=== PATIENT | male | born 1955 | race Caucasian/White ===

== ENCOUNTER 2016-10-31 10:44 | Outpatient (CLI) ==
[2014-09-01 01:20] VITALS: BMI 37.3
--- NOTE | 2016-10-31 11:36 | US ---
EXAM: Carotid ultrasound HISTORY: Dizziness COMPARISON: 06/26/2013 TECHNIQUE: Carotid ultrasound was performed using khan scale, color, and Doppler imaging was perfor med. FINDINGS: Right carotid: There is atherosclerotic plaque in the common carotid and bulb/internal carotid nancy ry. Peak systolic velocity measurement in the right internal carotid artery is 0.7 meters per secon d. End-diastolic velocity measurement in the right internal carotid artery is 0.2 meters per second . Right internal to common carotid artery peak systolic velocity ratio is 1.2. Flow in the right v ertebral artery is antegrade. Left carotid: There is atherosclerotic plaque in the common carotid and bulb/internal carotid arter y. Peak systolic velocity measurement in the left internal carotid artery is 0.9 meters per second. End-diastolic velocity measurement in the left internal carotid artery is 0.3 meters per second. Left internal to common carotid artery peak systolic velocity ratio measures 1.0. Flow in the left vertebral artery is antegrade. IMPRESSION: 1. Right internal carotid: Mild (less than 50%) stenosis 2. Left internal carotid: Mild (less than 50%) stenosis
== END 2016-10-31 10:45 | disposition home or self-care (01) ==
LOC: RAD 10:44
PROVIDERS: ATTEND Internal Medicine
DX: R42 Dizziness and giddiness (principal)

== ENCOUNTER 2017-01-26 07:43 | Outpatient (CLI) | payer OTHER ==
[2014-09-01 01:20] VITALS: BMI 37.3
--- NOTE | 2017-01-26 09:38 | MRI ---
EXAM: MRI lumbar spine without IV contrast. DATE: 26 January 2017. HISTORY: Bilateral lower extremity numbness and tingling (left > right). TECHNIQUE: Sagittal and axial T1W and T2W sequences of the lumbar spine along with sagittal IR and coronal T2W sequences were obtained using 1.2 Ade magnet. No IV contrast. COMPARISON: Frontal chest [address] abdomen/pelvis 01 September 2014. FINDINGS: There are four classic [id number] lumbar vertebra (L1 through L4). At the thoracolu mbar junction, there is a transitional vertebra with hypoplastic rib versus unusual right transverse process. Previous CT scan reveals 11 classic thoracic vertebra followed by this transitional verte bra. For the purposes of this dictation, this transitional vertebra is referred to as T12. At the lumbosacral junction, there is pseudoarticulation of the left L5 transverse process with the left S1 sacral ala, consistent with partial sacralization of L5. There is no lumbar scoliosis. No acute lumbar fracture, subluxation, osseous malignancy, or pars in terarticularis defect is identified. T2W/T1W bright, 5.0 mm focus in the L1 body, 24 mm focus in the L2 body, 20 mm focus in the L3 body, 7.4 mm focus in the L4 body, and 11.4 mm focus in the L5 body are likely benign hemangiomas. Small to moderate osteophytes are observed in the lower thoracic and lumbar spine. Endplate indentations are observed at each level from T11 through S1. There is mild posterior vertebral wedge appearance of the L3, L4, and L5 vertebra. Minor disc space narrowing is s een at L5-S1. Remaining intervertebral discs are normal in height. No sacral fracture or stress re action is detected. Minor anterior osteophytes each SI joint consistent with arthritis. Conus medu llaris terminates at T12. Visible spinal cord is normal. No retroperitoneal lymphadenopathy, paraspinal mass, or aortic aneurysm is detected. Paraspinal mus culature is symmetric bilaterally. Visible portions of the liver, spleen, gallbladder, adrenal glan ds kidneys are normal. Small number sigmoid colon diverticuli are visible. Segmental analysis: T12-L1: Minimal posterior disc bulge does not cause central stenosis or foraminal stenosis. L1-2: Minor posterior disc bulge and abundant dorsal epidural fat cause mild central canal stenosis . Each foramen is patent. L2-3: Small concentric disc bulge, mild facet arthropathy, and abundant dorsal epidural fat cause m oderate/marked central canal stenosis and mild bilateral foraminal stenoses. L3-4: Small concentric disc bulge, mild bilateral facet arthropathy, and marked dorsal epidural fat cause marked central canal stenosis and mild to moderate narrowing at the opening to each foramen. L4-5: Small concentric disc bulge, mild/moderate facet arthropathy, and abundant dorsal epidural fa t cause severe narrowing of the thecal sac and mild to moderate narrowing at the opening to each for amen. L5-S1: Minor posterior disc bulge, minor right facet arthropathy, mild left facet arthropathy, and abundant epidural fat cause slight bilateral foraminal encroachment. Thecal sac is severely narrowe d due to the epidural fat. IMPRESSIONS: 1. Lumbar spine mild spondylosis, mild facet arthropathy, multilevel minor DDD, and marked lumbosac ral spinal lipomatosis. 2. Multilevel central canal stenosis (L1-2: Mild. L2-3: Moderate/marked. L3-4: Marked. L4-5: Sev ere. L5-S1: Severe) 3. Multilevel lumbar foraminal stenoses. No definitive exiting nerve root compression. 4. Multilevel endplate indentations - consider Scheuermann disease. 5. Probable benign hemangiomas in the L1, L2, L3, L4, L5 vertebra. 6. Mild sigmoid colon diverticulosis. Note: Four classic lumbar vertebra. Partial sacralization of L5.
== END 2017-01-26 07:44 | disposition home or self-care (01) ==
LOC: RAD 07:43
PROVIDERS: ATTEND Internal Medicine Rheumatology
DX: R20.0 Anesthesia of skin (principal)

== ENCOUNTER 2017-02-27 16:55 | Outpatient (CLI) | payer OTHER ==
[2014-09-01 01:20] VITALS: BMI 37.3
== END 2017-02-27 16:56 | disposition home or self-care (01) ==
LOC: CAR 16:55
PROVIDERS: ATTEND Internal Medicine Pulmonary Disease
DX: G47.33 Obstructive sleep apnea (adult) (pediatric) (principal)
CPT/HCPCS: 95810

== ENCOUNTER 2017-03-26 16:15 | Outpatient (CLI) | payer OTHER ==
[2014-09-01 01:20] VITALS: BMI 37.3
== END 2017-03-26 16:16 | disposition home or self-care (01) ==
LOC: CAR 16:15
PROVIDERS: ATTEND Internal Medicine Pulmonary Disease
DX: G47.33 Obstructive sleep apnea (adult) (pediatric) (principal)
CPT/HCPCS: 95811

== ENCOUNTER 2017-04-05 09:06 | Outpatient (CLI) ==
[2014-09-01 01:20] VITALS: BMI 37.3
--- NOTE | 2017-04-05 12:39 | MRI ---
EXAM: MRI left knee without contrast. HISTORY: Left knee pain. Arthroscopy 2 years ago. Details not otherwise specified. No recent inju ry.. TECHNIQUE: Using a local extremity coil on a high field strength magnet multiplanar multisequence m agnet resonance imaging was performed of the left knee without intravenous or intra-articular gadoli nium contrast. FINDINGS: I do not have prior radiographs of the left knee available for comparison at the time of this dictation. Within the medial compartment there is diminutive size body medial meniscus. Question partial menis cectomy and/or degenerative radial tearing. Abnormal size and morphology posterior horn medial meni scus with near complete absence along the central to more lateral posterior horn. Question partial meniscectomy and/or degenerative tearing. There is marked diffuse chondrosis and cartilage denudati on/ulceration over the weightbearing medial compartment. Patchy areas of subchondral remodeling/mariana ma/cyst formation. Areas of subchondral sclerosis with productive osteophyte formation as well. Within the lateral compartment the lateral meniscus is intact without discrete surfacing meniscal te ar. The lateral compartment cartilage relatively congruent without focal underlying subchondral mariana ma. Productive osteophyte formation. Within the patellofemoral compartment the patella seated with intact patellar attachment of the medi al and lateral patellar retinaculum . Diffuse chondrosis and cartilage attenuation/denudation over the patella and trochlear groove. Productive osteophyte formation. Small left knee effusion. Synovitis. Minimal arthrofibrosis Hoffa's fat pad. Large osteochondral lo ose body measuring 21 mm medial patellar recess. Intact anterior and posterior cruciate ligament fi bers. The extensor mechanism is intact. Anterior superficial soft tissue edema/swelling. Chronic sprain medial collateral ligament. Lateral collateral ligament complex intact as is the posterolate ral corner.. IMPRESSION: Diminutive size body medial meniscus. Question partial meniscectomy and/or degenerativ e radial tearing. Abnormal size and morphology posterior horn medial meniscus with near complete ab sence along the central to more lateral posterior horn. Question partial meniscectomy and/or degene rative tearing. Changes of tricompartmental osteoarthrosis, medial and patellofemoral compartment dominant. Small left effusion. Synovitis. Minimal arthrofibrosis Hoffa's fat pad. Large 21 mm osteochondral loose body medial patellar recess. Intact cruciate and collateral ligaments. Chronic sprain medial collateral ligament.
== END 2017-04-05 09:07 | disposition home or self-care (01) ==
LOC: RAD 09:06
PROVIDERS: ATTEND Internal Medicine
DX: M25.562 Pain in left knee (principal)

== ENCOUNTER 2017-05-31 06:28 | Outpatient (CLI) ==
[2014-09-01 01:20] VITALS: BMI 37.3
--- NOTE | 2017-06-01 12:32 | ECHO2D ---
Date of Exam: 05/31/17 Ordering Physician: SARAH GOMES Reason for Echo: SURGICAL CLEARANCE, CAD WITH STENT, COPD M-Mode Normal Adult Results LV Dimensions Normal Adult Results AoV Opening excursions >1.6 >1.6 LVEDD-base- 3.5-5.8 4.5 Ao root dimensions 2.0-3.7 3.4 LVESD-base- 3.1-4.6 L. Atrium dimensions 1.9-3.8 4.4 Post. Wall thickness 0.8-1.1 1.5 IV septum (thickness) 0.7-1.2 1.5 Post. Wall excursion 0.72-1.3 NORMAL Septal motion NORMAL Systolic motion R. Ventricular cavity 1.5-2.0 NORMAL LVEF 60% 53% Paradoxical septal wall motion NORMAL 2-D : 2-D M Mode Echocardiogram was performed using apical four chamber and left parasternal long and short axis views. Mitral, tricuspid and aortic valves appear to be normal. Contractility of the left ventricle seems to be normal, so is the cavity size. Enlarged left atrial cavity. Aortic root appears to be normal. There is no pericardial effusion. There is no thrombus noted in the left ventricular or left aortic cavity. No mitral valve prolapse noted. M-MODE: MV: NORMAL AV: NORMAL TV: NORMAL PV: CHAMBER SIZE: ENLARGED LEFT ATRIAL CAVITY WALL MOTION: NORMAL PERICARDIUM: NORMAL INTERPRETATION: 1. MODERATE LEFT VENTRICULAR HYPERTROPHY WITH ENLARGED LEFT ATRIAL CAVITY 2. NORMAL VALVES 3. NORMAL LEFT VENTRICULAR CONTRACTILITY MTDD
== END 2017-05-31 06:29 | disposition home or self-care (01) ==
LOC: CAR 06:28
PROVIDERS: ATTEND Internal Medicine
DX: Z01.810 Encounter for preprocedural cardiovascular examination (principal); I25.10 Atherosclerotic heart disease of native coronary artery without angina pectoris; J44.9 Chronic obstructive pulmonary disease, unspecified; Z95.5 Presence of coronary angioplasty implant and graft
CPT/HCPCS: 93005; 93010

== ENCOUNTER 2017-06-01 06:26 | Outpatient (CLI) ==
[2014-09-01 01:20] VITALS: BMI 37.3
--- NOTE | 2017-06-01 11:15 | ECHOSTRESS ---
Date of Exam: 06/01/17 Ordering Physician: SARAH GOMES Reason for Echo: SURGICAL CLEARANCE, CAD WITH STENTS, COPD, STRESS TEST--NO ISCHEMIA M-Mode Normal Adult Results LV Dimensions Normal Adult Results AoV Opening excursions >1.6 LVEDD-base- 3.5-5.8 Ao root dimensions 2.0-3.7 LVESD-base- 3.1-4.6 L. Atrium dimensions 1.9-3.8 Post. Wall thickness 0.8-1.1 IV septum (thickness) 0.7-1.2 Post. Wall excursion 0.72-1.3 Septal motion Systolic motion R. Ventricular cavity 1.5-2.0 LVEF 60% Paradoxical septal wall motion 2-D: NORMAL LEFT VENTRICULAR CONTRACTILITY--RESTING AND POST EXERCISE M-MODE: MV: AV: TV: PV: CHAMBER SIZE: WALL MOTION: NORMAL LEFT VENTRICULAR CONTRACTILITY--RESTING AND POST EXERCISE PERICARDIUM: INTERPRETATION: 1. NORMAL LEFT VENTRICULAR CONTRACTILITY--RESTING AND POST EXERCISE MTDD
--- NOTE | 2017-06-01 11:27 | STRESSMOD ---
Ordering Physician: SARAH GOMES Date of Test: 06/01/17 Medical History: CAD WITH STENTS, COPD, SURGICAL CLEARANCE Current Medications: EFFIENT, PREDNISONE, DICLOFENAC, BISOPROLOL, AMLODIPINE, LOSARTAN, HYDROCODONE, CLONIDINE, ATORVASTATIN Physical Findings: S1, S2, NO S3 Resting EKG: SINUS RHYTHM/ NO ACUTE CHANGES Target Heart Rate: 133/157 STAGE MPH/GRADE HEART RATE BPM BLOOD PRESSURE mmhg RHYTHM S-T SEGMENT UP DOWN SYMPTOMS,COMMENTS At Rest 60 142/72 SR X NONE 1 1.7/0% 80 160/82 SR X NONE 2 1.7/5% 82 162/78 SR X NONE 3 1.7/10% 4 2.5/12% 5 3.4/14% 6 4.2/16% 7 5.18% Immediately after 90 SR X FATIGUE, KNEE PAIN Total Time: 8:00 Maximum Heart Rate Reached: 90 Reason for Termination: FATIGUE, KNEE PAIN 3 MINUTES POST EXERCISE: HR 68 BPM, BP 154/80 MMHG, SINUS RHYTHM, +/- INTERPRETATION: 95% OXYGEN SATURATION WITH EXERCISE ON ROOM AIR METS 4.6 1. NO EVIDENCE OF ISCHEMIA BY ST-T WAVE 2. NO CHEST PAIN OR CHEST DISCOMFORT 3. NO ARRHYTHMIAS 4. BLOOD PRESSURE RESPONSE: ADEQUATE NORMAL LEFT VENTRICULAR CONTRACTILITY--RESTING AND POST EXERCISE MTDD
== END 2017-06-01 06:27 ==
LOC: CAR 06:26
PROVIDERS: ATTEND Internal Medicine
DX: Z01.810 Encounter for preprocedural cardiovascular examination (principal); I25.10 Atherosclerotic heart disease of native coronary artery without angina pectoris; J44.9 Chronic obstructive pulmonary disease, unspecified; Z95.5 Presence of coronary angioplasty implant and graft

== ENCOUNTER 2018-04-22 12:39 | Outpatient (CLI) ==
[2014-09-01 01:20] VITALS: BMI 37.3
--- NOTE | 2018-04-22 14:07 | MRI ---
EXAM: MRI of the right knee without contrast COMPARISON: None available. HISTORY: Right knee pain. Sprain. TECHNIQUE: Multiplanar noncontrast MR images of the right knee were acquired using a 1.2 Ade magne t. FINDINGS: There is intrasubstance degeneration of the medial meniscus with a tear involving the free edge and superior articular surface from the level of the body through the posterior horn with tear extending into the peripheral third of the meniscus. Peripheral superior articular surface flap exte nds 0.3 cm into the superior recess at the level of the extruded body. The lateral meniscus is intac t. Inversion recovery hyperintense signal within the substance of the anterior cruciate ligament related mucoid degeneration versus a sprain with intact fibers identified. The posterior cruciate ligament is intact. Sprain/partial tear with scarring of the medial collateral ligament with minimal bursitis . Minimal sprain of the iliotibial band. The lateral collateral ligament complex and posterolateral corner ligaments are intact. Mild distal quadriceps and minimal patellar tendinosis. No abnormal s ubluxation of the patella. There is subcutaneous edema anteriorly without a drainable fluid collecti on. Thinning of the medial patellar retinaculum complex related to an old injury. There is diffuse thinning of the cartilage of the patella with most severe thinning and deep fissurin g along the median ridge superiorly. Thinning and fissuring of the cartilage along the opposing kenna cular surface of the trochlear groove. Moderate to severe thinning of the cartilage in the medial co mpartment. Mild thinning of the cartilage in the lateral compartment. No evidence of an acute fract ure, osteomyelitis or focal marrow lesion. Small joint effusion, nonspecific. No popliteal cyst or osteochondral body. IMPRESSION: 1. Medial meniscal tear with small meniscal flap as described in detail above. Mild extrusion of th e body related to loss of hoop containment. 2. Mucoid degeneration versus sprain of the anterior cruciate ligament with intact fibers identified . Sprain/partial tear of the medial collateral ligament with bursitis. Minimal sprain of the iliotib ial band. 3. Mild patellar/quadriceps tendinosis. Subcutaneous edema anteriorly. 4. Thinning of the medial patellar retinaculum complex related to previous tear. No abnormal sublux ation of the patella. 5. Tricompartmental osteoarthrosis with most severe changes in the patellofemoral compartment. Smal l knee effusion.
== END 2018-04-22 12:40 | disposition home or self-care (01) ==
LOC: RAD 12:39
PROVIDERS: ATTEND Orthopaedic Surgery
DX: M25.361 Other instability, right knee (principal); S83.411A Sprain of medial collateral ligament of right knee, initial encounter; S83.8X1A Sprain of other specified parts of right knee, initial encounter

== ENCOUNTER 2019-03-12 22:37 | Emergency (ER) | payer OTHER ==
[2019-03-12 22:50] VITALS: BP 176/85; TEMP 99.2; BMI 34.7
--- NOTE | 2019-03-12 22:54 | ED.PDOC ---
General ED Provider: Dr. MARY BUSBY Chief Complaint: Neck Pain Non-Injury Stated Complaint: Patient is a 64 year od male who comes to the ER with complaints of pain on the left side of neck radiating into shoulder that has been present for 1 week. He states that the pain became worse yesterday. Today he had pain and stiffness with moving his head and neck. Denies any trauma. Has a history of arthritis. Time Seen by Physician: 22:51 Mode of Arrival: Walk-In Information Source: Patient Primary Care Provider: SARAH GOMES Nursing and Triage Documentation Reviewed and Agree: Yes Does patient meet sepsis criteria?: No System Inflammatory Response Syndrome: Not Applicable Sepsis Protocol: For patient's 13 years and over: Temp is 96.8 and below OR 101 and greater Pulse >90 BPM Resp >20/minute Acutely Altered Mental Status Are patient's symptoms suggestive of a new infection, such as: -Pneumonia -Skin, Soft Tissue -Endocarditis -UTI -Bone, Joint Infection -Implantable Device -Acute Abdominal Infection -Wound Infection -Meningitis -Blood Stream Catheter Infection -Unknown Review of Systems - Review Of Systems Constitutional: Reports: No symptoms Eyes: Reports: No symptoms Ears, Nose, Mouth, Throat: Reports: No symptoms Respiratory: Reports: No symptoms Cardiac: Reports: No symptoms GI: Reports: No symptoms : Reports: No symptoms Musculoskeletal: Reports: Muscle pain, Muscle stiffness, Other (muscle spasms ) Skin: Reports: No symptoms Neurological: Reports: Anxiety Endocrine: Reports: No symptoms Hematologic/Lymphatic: Reports: No symptoms All Other Systems: Reviewed and Negative Past Medical History - Past Medical History Previously Healthy: Yes Endocrine: Reports: DM 2, Dyslipidemia Cardiovascular: Reports: MA, Hypertension Respiratory: Reports: None Hematological: Reports: None Gastrointestinal: Reports: GERD Genitourinary: Reports: None Neuro/Psych: Reports: None Musculoskeletal: Reports: Arthritis Cancer: Reports: None - Surgical History General Surgical History: Reports: Orthopedic (LEFT AND RIGHT KNEE REPAIR) - Family History Family History: Reports: None - Social History Smoking Status: Current every day smoker, Heavy tobacco smoker Hx Substance Use: No Alcohol Screening: None - Immunizations Tetanus Shot up to Date: No (UNKNOWN) Physical Exam - Physical Exam Appearance: Ill-appearing Ill-appearing: Mild Pain Distress: Severe Eyes: ABY, EOMI, Conjunctiva clear ENT: Ears normal, Nose normal, Oropharynx normal Neck: Nonsupple Respiratory: Airway patent Cardiovascular: RRR, Pulses normal, No rub, No murmur GI/: Soft, Nontender Musculoskeletal: Limited ROM (of the neck ) Skin: Warm, Dry Neurological: Sensation intact, Motor intact, Reflexes intact, Cranial nerves intact, Alert, Oriented Psychiatric: Anxious Interpretation - Radiology Interpretation Radiology Interpretation By: Radiologist Radiology Results: Negative Exam Interpreted: CXR, CT Scan - EKG Interpretation Time of EKG #1: 23:05 Rate: Normal Rhythm: Sinus Ectopy: None [place]: NL ST Segment: Normal Interpretation: Normal EKG Re-Evaluation - Re-Evaluation Time of Re-Evaluation: 00:10 Status: Improved Vital Signs Stable: Yes Pain Level: much improved able to move neck without much difficulty Critical Care Note - Critical Care Note Total Time (mins): 30 Course - Course Hematology/Chemistry: 03/12/19 23:00 03/12/19 23:00 Orders, Labs, Meds: Lab Review 03/12/19 03/12/19 23:00 23:00 WBC 11.89 H RBC 4.45 L Hgb 14.4 Hct 42.5 MCV 95.5 H MCH 32.4 H MCHC 33.9 RDW Coeff of [place] 13.7 Plt Count 219 Immature Gran % (Auto) 0.3 Neut % (Auto) 68.9 Lymph % (Auto) 19.5 [place] % (Auto) 9.8 Eos % (Auto) 1.2 Baso % (Auto) 0.3 Immature Gran # (Auto) 0.0 Neut # (Auto) 8.2 H Lymph # (Auto) 2.3 [place] # (Auto) 1.2 Eos # (Auto) 0.1 Baso # (Auto) 0.0 Sodium 138.0 Potassium 3.61 Chloride 105.3 Carbon Dioxide 22.7 Anion Gap 13.61 BUN 19.5 Creatinine 0.67 Estimated GFR (MDRD) 119.00 BUN/Creatinine Ratio 29.10 Glucose 152.6 H Calcium 9.09 Total Bilirubin 0.37 AST 28.0 ALT 20.4 Alkaline Phosphatase 85.7 Total Creatine Kinase 112.7 Troponin I < 0.012 Total Protein 6.69 Albumin 4.40 Globulin 2.29 Albumin/Globulin Ratio 1.92 Orders Category Date Time Status EKG-(ED ONLY) Stat CARDIO 03/12/19 22:55 Completed CBC W/ AUTO DIFF Stat LAB 03/12/19 23:00 Completed COMPREHENSIVE METABOLIC PANEL Stat LAB 03/12/19 23:00 Completed CREATINE KINASE Stat LAB 03/12/19 23:00 Completed TROPONIN I Stat LAB 03/12/19 23:00 Completed Hydromorphone HCl [Dilaudid 1 mg/ml Syringe] MEDS 03/12/19 23:27 Discontinued 1 mg IM ONCE STA Ketorolac Tromethamine [Toradol] MEDS 03/12/19 23:27 Discontinued 60 mg IM ONCE STA CHEST, 2 VIEWS PA & LAT Stat RADS 03/12/19 23:[address] CERVICAL SPINE W/O CONTRAST Stat RADS 03/12/19 23:04 Completed Medications Discontinued Medications Generic Name Dose Route Start Last Admin Trade Name Freq PRN Reason Stop Dose Admin Hydromorphone HCl 1 mg 03/12/19 23:27 03/12/19 23:41 Dilaudid 1 Mg/Ml Syringe IM 03/12/19 23:28 1 mg ONCE STA Administration Ketorolac Tromethamine 60 mg 03/12/19 23:27 03/12/19 23:40 Toradol IM 03/12/19 23:28 60 mg ONCE STA Administration Vital Signs: Temp Pulse Resp BP Pulse Ox 03/12/19 22:40 99.2 F 77 24 176/85 H 92 L Departure - Departure Time of Disposition: 00:12 Disposition: HOME SELF-CARE Discharge Problem: Neck muscle strain Qualifiers: Encounter type: initial encounter Qualified Code(s): S16.1XXA - Strain of muscle, fascia and tendon at neck level, initial encounter Instructions: Muscle Spasm (ED) Condition: Fair Pt referred to PMD for follow-up: Yes IPMP verified?: No Additional Instructions: take medications as prescribed Do not take Flexeril and Hydrocodone together Follow up wit PC pin 3 days Prescriptions: Cyclobenzaprine HCl [Flexeril] 10 mg PO DAILY PRN #20 tablet PRN Reason: spasms Allergies/Adverse Reactions: Allergies Penicillins Adverse Reaction (Verified 01/27/14 01:16) Home Medications: Ambulatory Orders Amlodipine Bes/Olmesartan Med [Sergio 10-40 mg Tablet] 1 each PO DAILY 01/27/14 Aspirin [Aspirin EC] 81 mg PO BID 01/27/14 Atorvastatin Calcium [Lipitor] 40 mg PO DAILY 01/27/14 Cetirizine HCl [Zyrtec] 10 mg PO DAILY 01/27/14 Clonidine HCl 0.3 mg PO BID 01/27/14 Nebivolol HCl [Bystolic] 10 mg PO DAILY 01/27/14 Cholecalciferol (Vitamin D3) [Vitamin D] 1,000 unit PO DAILY 09/26/16 Hydrocodone/Acetaminophen [Hydrocodon-Acetaminoph 7.5-325] 1 tab PO DIRECTED PRN 09/26/16 Losartan Potassium [Cozaar] 100 mg PO DAILY 09/26/16 Multivitamin 1 cap PO DAILY 09/26/16 Prednisone 1 mg PO DAILYWM 09/26/16 Clopidogrel Bisulfate [Plavix] 75 mg PO DAILY 03/12/19 Duloxetine HCl [Cymbalta] 30 mg PO DAILY 03/12/19 Cyclobenzaprine HCl [Flexeril] 10 mg PO DAILY PRN #20 tablet 03/13/19 Disposition Discussed With: Patient, Family
[2019-03-12] MEDS ORDERED: TORADOL IM STA (23:27)
[2019-03-12] MEDS ORDERED: DILAUDID 1 MG/ML SYRINGE IM STA (23:27)
--- NOTE | 2019-03-12 23:37 | DI ---
EXAM: Chest two views HISTORY: Cough and chest pain FINDINGS: Normal cardiac and mediastinal contours. Normal pulmonary vasculature. Lungs are clear. No significant abnormality of the bony thorax. IMPRESSION: Chest radiograph within normal limits.
--- NOTE | 2019-03-12 23:43 | CT ---
Exam: CT cervical spine without contrast History: Neck pain Technique: [address] cervical spine with multiplanar reformations FINDINGS: Cervical spine shows normal alignment. Vertebral body height is maintained. No fracture lines or suspicious bony lesions. No immediate paravertebral soft tissue abnormalities. The lung ap ices are clear. C2-C3: No central canal or foraminal stenosis C3-C4: Minor posterior disc osteophyte without significant central canal or foraminal stenosis. C4-C5: Degenerative change mostly manifest by facet arthropathy. There is mild right and moderate l eft foraminal narrowing. No significant central canal narrowing. C5-C6: Bone on bone disc space narrowing with posterior disc osteophyte and mild anterior sac indent ation. Facet enlargement is present. Bilateral multifactorial mild foraminal narrowing. C6-C7: No central canal narrowing. Facet enlargement with mild bilateral foraminal narrowing. C7-T1: No central canal or foraminal narrowing. Impression: 1. No acute cervical abnormality 2. Generally mild degenerative change. Foraminal narrowing approaching moderate at C4-5.
== END 2019-03-13 00:22 | disposition home or self-care (01) ==
LOC: ED 22:37
DX: S16.1XXA Strain of muscle, fascia and tendon at neck level, initial encounter (principal); X50.1XXA Overexertion from prolonged static or awkward postures, initial encounter; F17.210 Nicotine dependence, cigarettes, uncomplicated; E11.9 Type 2 diabetes mellitus without complications; E78.5 Hyperlipidemia, unspecified; I10 Essential (primary) hypertension; I25.2 Old myocardial infarction; Z79.899 Other long term (current) drug therapy
CPT/HCPCS: 36415; 80053; 82550; 84484; 85025; 93005; 93010; 96372; 99283

== ENCOUNTER 2023-01-25 23:20 | Observation (INO) ==
[2023-01-25] MEDS ORDERED: SODIUM CHLORIDE 1,000 ML IV STA (23:27)
[2023-01-25] MEDS ORDERED: ZOFRAN 4 MG/2 ML IVP STA (23:27)
--- NOTE | 2023-01-25 23:30 | ED.PDOC ---
General ED Provider: Dr. MARY BUSBY Chief Complaint: Chest Pain Stated Complaint: Comes to the ER with chest pain that started one hour ago that did not respond to Nitroglycerine x 1. Had used nitroglycerine this week and had gone away. Has a history of 2 stents in 2014 then on stent was removed when it was noted to have clogged. Time Seen by Provider: 01/25/23 23:27 Mode of Arrival: Wheelchair Information Source: Patient and Family Primary Care Provider: SARAH GOMES MD Nursing and Triage Documentation Reviewed and Agree: Yes Does patient meet sepsis criteria?: No System Inflammatory Response Syndrome: Not Applicable Sepsis Protocol: For patient's 13 years and over: Temp is 96.8 and below OR 101 and greater Pulse >90 BPM Resp >20/minute Acutely Altered Mental Status Are patient's symptoms suggestive of a new infection, such as: -Pneumonia -Skin, Soft Tissue -Endocarditis -UTI -Bone, Joint Infection -Implantable Device -Acute Abdominal Infection -Wound Infection -Meningitis -Blood Stream Catheter Infection -Unknown Review of Systems Review Of Systems Constitutional: Reports No symptoms Respiratory: Reports Short of air Cardiac: Reports Chest pain Neurological: Reports Anxiety All Other Systems: Reviewed and Negative [facility] Medical History (Updated 01/26/23 @ 01:43 by FRANK COSME RN) Family History FATHER Dementia Mother Dementia Social History (Updated 01/02/23 @ 08:00 by SARAH TAYLOR LPN) Smoking and tobacco status: Current every day smoker Alcohol intake: current Substance use type: does not use Special esmer needs: No Agree to transfusion: Yes Adopted: No Caregiver/support person: No Foster care: No Household members: spouse Housing: house Marital status: M Lives independently: Yes Number of children: 3 Financial difficulty paying for basics: not very hard service: No assisted: No Current occupational status: retired Pets and animals: No History of recent travel: No Sexually active: No Do you think of yourself as: straight/heterosexual Current gender identity: male Seatbelt use: always Drives intoxicated or rides with intoxicated ross carrier driver: No Water heater temperature set < 120 degrees: Yes Working smoke detector in home: Yes Fire extinguisher in home: Yes Carbon monoxide detector in home: No Firearms in home: Yes Surgical History (Updated 01/26/23 @ 01:43 by FRANK COSME RN) Physical Exam Physical Exam Appearance: Reports Obese Ill-appearing: Moderate Pain Distress: Severe Eyes: Reports ABY, EOMI and Conjunctiva clear ENT: Reports Nose normal and Oropharynx normal Neck: Supple Respiratory: Reports Airway patent and Breath sounds clear Cardiovascular: Reports RRR, Pulses normal and No rub GI/: Reports Soft, Nontender and No masses Musculoskeletal: Reports ROM intact and No edema Skin: Reports Warm and Diaphoretic Neurological: Reports Sensation intact Psychiatric: Reports Anxious Interpretation Radiology Interpretation Radiology Interpretation By: ED Physician Radiology Results: Negative Exam Interpreted: CXR Exercise Instructor Time of Exercise Instructor Interpretation: 23:41 Rate: Normal Rhythm: Sinus Ectopy: None EKG Interpretation Time of EKG #1: 23:08 Rate: Normal Rhythm: Sinus Ectopy: None Lawn: NL ST Segment: Normal 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 Re-Evaluation Re-Evaluation Time of Re-Evaluation: 23:46 Status: Improved Vital Signs Stable: Yes Pain Level: gone after 1 nitro Critical Care Note Critical Care Note Total Critical Care Time (mins): 30 Course Course 01/25/23 23:25 01/25/23 23:25 Orders, Labs, Meds: Lab Review 01/25/23 01/26/23 23:25 00:20 WBC 9.08 RBC 4.61 L Hgb 15.1 Hct 43.3 MCV 93.9 MCH 32.8 H MCHC 34.9 RDW Coeff of [place] 13.5 Plt Count 230 Immature Gran % (Auto) 0.2 Neut % (Auto) 60.9 Lymph % (Auto) 28.2 [place] % (Auto) 8.0 Eos % (Auto) 2.4 Baso % (Auto) 0.3 Neut # (Auto) 5.5 Lymph # (Auto) 2.6 [place] # (Auto) 0.7 Eos # (Auto) 0.2 Baso # (Auto) 0.0 Immature Gran # (Auto) 0.0 Sodium 139.0 Potassium 3.49 L Chloride 103.9 Carbon Dioxide 27.2 Anion Gap 11.39 BUN 19.9 Creatinine 0.76 Estimated GFR (MDRD) 102.00 BUN/Creatinine Ratio 26.18 Glucose 149.4 H Calcium 9.52 Total Bilirubin 0.33 AST 29.6 ALT 25.9 Alkaline Phosphatase 103.1 Total Creatine Kinase 160.9 CK-MB (CK-2) 2.070 CK-MB (CK-2) % 1.2800 Troponin I < 0.012 Total Protein 7.02 Albumin 4.49 Globulin 2.53 Albumin/Globulin Ratio 1.77 SARS CoV-2 RNA Rapid ROSS Negative Orders Category Date Time Status ADMIT OBSERVATION [PLACE PATIENT OBSERVATION] .TO ADMISSION 01/26/23 00:36 Active MEDSURG (MONITORED BED) EKG-(ED ONLY) Stat CARDIO 01/25/23 23:27 Completed EKG-(IP & OP ONLY) Routine CARDIO 01/26/23 07:00 Ordered METERED DOSE INHALATION Routine CARDIO 01/26/23 00:40 Active ACTIVITY .Up ad Isela CARE 01/26/23 00:37 Active BLOOD GLUCOSE MONITORING (MED/SURG) 0630,1100,1700,2100 CARE 01/26/23 00:38 Active GIVE HS SNACK 2100 CARE 01/26/23 00:38 Active INTAKE & OUTPUT Q8HR CARE 01/26/23 00:37 Active TELEMETRY MONITORING TELE CARE 01/26/23 00:36 Active VITAL SIGNS Q4HR CARE 01/26/23 00:37 Active ADA 1800 GLORIA. DIET DIETARY 01/26/23 Breakfast Ordered HS SNACK DIETARY 01/26/23 Dinner Ordered ED ORE MIXER APPLIED .ONCE EMERGENCY 01/25/23 23:27 Active ED IV/MEDIPORT/POWERPORT .ONCE EMERGENCY 01/25/23 23:27 Active BASIC METABOLIC PANEL DAILY@0600 LAB 01/26/23 06:00 Ordered BASIC METABOLIC PANEL DAILY@0600 LAB 01/27/23 06:00 Ordered CBC W/ AUTO DIFF DAILY@0600 LAB 01/26/23 06:00 Ordered CBC W/ AUTO DIFF DAILY@0600 LAB 01/27/23 06:00 Ordered CBC W/ AUTO DIFF Stat LAB 01/25/23 23:25 Completed COMPREHENSIVE METABOLIC PANEL Stat LAB 01/25/23 23:25 Completed CREATINE KINASE Q8H LAB 01/26/23 06:45 Ordered CREATINE KINASE Q8H LAB 01/26/23 14:45 Ordered CREATINE KINASE Stat LAB 01/25/23 23:25 Completed SARS COV-2 RNA RAPID ROSS Stat LAB 01/26/23 00:20 Completed TROPONIN I Q8H LAB 01/26/23 06:45 Ordered TROPONIN I Q8H LAB 01/26/23 14:45 Ordered TROPONIN I Stat LAB 01/25/23 23:25 Completed 0.9 % Sodium Chloride [Saline Flush] MEDS 01/25/23 23:27 Active 1 syr IVF PRN PRN Acetaminophen [Tylenol] MEDS 01/25/23 23:46 Discontinued 650 mg PO ONCE ONE Acetaminophen [Tylenol] MEDS 01/26/23 00:36 Active 650 mg PO Q4H PRN Albuterol Inhaler(with Spacer) [Ventolin Hfa (Per Puff- MEDS 01/26/23 00:40 Active with Spacer)] 2 puff IH Q4-6H PRN Aspirin [Aspirin EC] MEDS 01/26/23 09:00 Active 81 mg PO DAILY Atorvastatin Calcium [Lipitor] MEDS 01/26/23 09:00 Active 80 mg PO DAILY Bisoprolol Fumarate [Zebeta] MEDS 01/26/23 09:00 Active 10 mg PO DAILY Cholecalciferol (Vitamin D3) [Vitamin D] MEDS 01/26/23 09:00 Active 1,000 unit PO DAILY Clonidine HCl [Catapres] MEDS 01/26/23 09:00 Active 0.3 mg PO DAILY Clopidogrel Bisulfate [Plavix] MEDS 01/26/23 09:00 Active 75 mg PO DAILY Cyclobenzaprine HCl [Flexeril] MEDS 01/26/23 00:40 Active 10 mg PO DAILY PRN Enoxaparin Sodium [Lovenox] MEDS 01/26/23 09:00 Active 40 mg SUBCUT DAILY Hydromorphone HCl [Dilaudid 1 mg/ml Syringe] MEDS 01/26/23 00:36 Active 1 mg IVP Q4HR PRN Insulin Regular, Human [Humulin R] MEDS 01/26/23 00:36 Active See Protocol SUBCUT PRN PRN Loratadine [Claritin] MEDS 01/26/23 09:00 Active 10 mg PO DAILY Nitroglycerin [Nitrostat] MEDS 01/25/23 23:27 Active 0.4 mg SL Q5MIN X 3 DOSES PRN Ondansetron HCl/Pf [Zofran 4 mg/2 ml] MEDS 01/25/23 23:27 Discontinued 4 mg IVP ONCE STA Ondansetron HCl/Pf [Zofran 4 mg/2 ml] MEDS 01/26/23 00:36 Active 4 mg IVP Q6H PRN Sodium Chloride 0.9% [Sodium Chloride] 1,000 ml MEDS 01/25/23 23:27 Active IV 75 mls/hr amlodipine-olmesartan [Sergio] MEDS 01/26/23 09:00 Pending 1 each PO DAILY cetirizine [Zyrtec] MEDS 01/26/23 09:00 Discontinued 10 mg PO DAILY RESUSCITATION STATUS Routine OTHERS 01/26/23 00:36 Ordered CHEST, 1V AP ONLY Stat RADS 01/25/23 23:27 Completed Medications Generic Name Dose Route Start Last Admin Trade Name Freq PRN Reason Stop Dose Admin Acetaminophen 650 mg 01/26/23 00:36 Acetaminophen 325 Mg Tablet PO Q4H PRN Fever and Mild Pain Albuterol Sulfate 2 puff 01/26/23 00:40 Albuterol Sulfate (Ventolin Hfa) 18 Gm 1 Puff With Spacer IH Q4-6H PRN SHORT OF AIR Aspirin 81 mg 01/26/23 09:00 Aspirin 81 Mg Tablet.Dr PO DAILY PENDING SALE TO [facility] Atorvastatin Calcium 80 mg 01/26/23 09:00 Atorvastatin Calcium 20 Mg Tablet PO DAILY PENDING SALE TO [facility] Bisoprolol Fumarate 10 mg 01/26/23 09:00 Bisoprolol Fumarate 5 Mg Tablet PO DAILY PENDING SALE TO [facility] Cholecalciferol 1,000 unit 01/26/23 09:00 Cholecalciferol (Vitamin D3) 1,000 Unit (25 Mcg) Tablet PO DAILY PENDING SALE TO [facility] Clonidine 0.3 mg 01/26/23 09:00 Clonidine Hcl 0.1 Mg Tablet PO DAILY PENDING SALE TO [facility] Clopidogrel Bisulfate 75 mg 01/26/23 09:00 Clopidogrel Bisulfate 75 Mg Tablet PO DAILY PENDING SALE TO [facility] Cyclobenzaprine HCl 10 mg 01/26/23 00:40 Cyclobenzaprine Hcl 10 Mg Tablet PO DAILY PRN MUSCLE CRAMPS Enoxaparin Sodium 40 mg 01/26/23 09:00 Enoxaparin Sodium 40 Mg/0.4 Ml Syr SUBCUT DAILY PENDING SALE TO [facility] Hydromorphone HCl 1 mg 01/26/23 00:36 Hydromorphone Hcl 1 Mg/Ml Syringe IVP Q4HR PRN Severe Pain Sodium Chloride 1,000 mls @ 75 mls/hr 01/25/23 23:27 01/25/23 23:39 Sodium Chloride IV 01/26/23 12:46 75 mls/hr .[id number] STA Administration Insulin Human Regular 0 unit 01/26/23 00:36 Insulin Regular, Human 100 Unit/Ml (3ml) Vial SUBCUT PRN PRN Hyperglycemia Protocol Loratadine 10 mg 01/26/23 09:00 Loratadine 10 Mg Tablet PO DAILY PENDING SALE TO [facility] Nitroglycerin 0.4 mg 01/25/23 23:27 01/25/23 23:39 Nitroglycerin 0.4 Mg Tab.Subl SL 0.4 mg Q5MIN X 3 DOSES PRN Administration Chest Pain Non-Formulary Medication 1 each 01/26/23 09:00 Amlodipine-Olmesartan [Sergio] PO DAILY PENDING SALE TO [facility] Ondansetron HCl 4 mg 01/26/23 00:36 Ondansetron Hcl/Pf 4 Mg/2 Ml Sdv IVP Q6H PRN Nausea / Vomiting Sodium Chloride 1 syr 01/25/23 23:27 0.9% Sodium Chloride 10 Ml Disp.Syrin IVF PRN PRN To flush IV Discontinued Medications Generic Name Dose Route Start Last Admin Trade Name Freq PRN Reason Stop Dose Admin Acetaminophen 650 mg 01/25/23 23:46 01/26/23 00:18 Acetaminophen 325 Mg Tablet PO 01/25/23 23:47 650 mg ONCE ONE Administration Non-Formulary Medication 10 mg 01/26/23 09:00 Cetirizine [Zyrtec] PO DAILY PENDING SALE TO [facility] Ondansetron HCl 4 mg 01/25/23 23:27 01/25/23 23:38 Ondansetron Hcl/Pf 4 Mg/2 Ml Sdv IVP 01/25/23 23:28 4 mg ONCE STA Administration Vital Signs: Temp Pulse Resp BP Pulse Ox 01/25/23 23:24 99 F 81 24 H 225/114 H 96 TYSON Risk Score Age >/= 65: Yes >/= 3 CAD Risk Factors: Yes Known CAD (Stenosis >/= 50%): Yes ASA Use in Past 7 Days: Yes Severe Angina (>/= 2 episodes in 24 hours): Yes EKG ST Changes >/= 0.5mm: No Postive Cardiac Marker: No TYSON Total Score: 5 TYSON Risk Score: Risk Score Odds of by 30D 0 0.1 (0.1-0.2) 1 0.3 (0.2-0.3) 2 0.4 (0.3-0.5) 3 0.7 (0.6-0.9) 4 1.2 (1.0-1.5) 5 2.2 (1.9-2.6) 6 3.0 (2.5-3.6) 7 4.8 (3.8-6.1) Discharge Plan Discharge Patient Disposition: PLACED OBSERVATION Discharge Problem: Unstable angina Did you review [place] APARTMENT HOUSE MANAGER for ALL controlled substances?: Not Applicable ED Provider: MARY BUSBY Condition: Fair Physician Progress Note: []
[2023-01-25 23:31] LABS: BASOPHILS % (AUTO) 0.3 % (0.0-3.0); EOSINOPHILS # (AUTO) 0.2 K/ul (0.0-0.7); EOSINOPHILS % (AUTO) 2.4 % (0.0-7.0); HEMATOCRIT 43.3 % (42.0-52.0); HEMOGLOBIN 15.1 g/dl (14.0-18.0); IMMATURE GRANULOCYTE % (AUTO) 0.2 % (0.0-5.0); LYMPHOCYTES # (AUTO) 2.6 K/uL (0.60-3.4); LYMPHOCYTES % (AUTO) 28.2 (10.0-50.0); MEAN CORPUSCULAR HEMOGLOBIN 32.8 pg (27.0-31.0); MEAN CORPUSCULAR HGB CONC 34.9 (31.8-35.4); MEAN CORPUSCULAR VOLUME 93.9 fl (80.0-94.0); MONOCYTES # (AUTO) 0.7 K/uL (0.4-2.0); NEUTROPHILS # (AUTO) 5.5 K/ul (2.0-6.9); NEUTROPHILS % (AUTO) 60.9 % (42.2-75.2); PLATELET COUNT 230 10^3/uL (140-440); RDW COEFFICIENT OF VARIATION 13.5 % (11.6-14.8); RED BLOOD COUNT 4.61 10^6/ul (4.70-6.10); WHITE BLOOD COUNT 9.08 K/ul (4.2-10.2)
[2023-01-25] MEDS: NITROSTAT SL PRN (23:39)
[2023-01-25 23:42] LABS: ALANINE AMINOTRANSFERASE 25.9 U/L (0-50); ALBUMIN 4.49 g/dL (3.5-5.0); ALKALINE PHOSPHATASE 103.1 U/L (56-119); ASPARTATE AMINO TRANSFERASE 29.6 U/L (17-59); BILIRUBIN,TOTAL 0.33 mg/dL (0.2-1.3); BLOOD UREA NITROGEN 19.9 mg/dL (9-20); CALCIUM 9.52 mg/dL (8.4-10.2); CARBON DIOXIDE 27.2 mmol/L (22-30.0); CHLORIDE 103.9 mmol/L (98-107); CREATINE KINASE 160.9 U/L (55-170); CREATININE 0.76 mg/dL (0.60-1.10); GLUCOSE 149.4 mg/dL (74-106); POTASSIUM 3.49 mmol/L (3.5-5.1); TOTAL PROTEIN 7.02 g/dL (6.3-8.2)
[2023-01-25] MEDS ORDERED: TYLENOL PO ONE (23:46)
--- NOTE | 2023-01-25 23:48 | DI ---
EXAM: AP CHEST. HISTORY: Chest pain. FINDINGS: The bones are unremarkable. The cardiac silhouette and pulmonary vasculature are within no rmal limits. The costophrenic angles are clear. There is trace left basilar atelectasis and/or pneu monia. Impression: Trace left basilar atelectasis and/or pneumonia.
[2023-01-25 23:54] LABS: TROPONIN I < 0.012 ng/ml (0.0000-0.120)
[2023-01-26] MEDS ORDERED: ZOFRAN 4 MG/2 ML IVP PRN (00:36)
[2023-01-26] MEDS ORDERED: HUMULIN R SUBCUT PRN (00:36)
[2023-01-26] MEDS ORDERED: TYLENOL PO PRN (00:36)
[2023-01-26] MEDS ORDERED: DILAUDID 1 MG/ML SYRINGE IVP PRN (00:36)
[2023-01-26] MEDS ORDERED: VENTOLIN HFA (PER PUFF-WITH SPACER) IH PRN (00:40)
[2023-01-26] MEDS ORDERED: FLEXERIL PO PRN (00:40)
[2023-01-26 00:54] LABS: SARS COV-2 RNA RAPID NAAT NEGATIVE (NEGATIVE)
[2023-01-26 01:40] VITALS: BMI 36.7
[2023-01-26 06:59] LABS: BASOPHILS % (AUTO) 0.5 % (0.0-3.0); EOSINOPHILS # (AUTO) 0.2 K/ul (0.0-0.7); EOSINOPHILS % (AUTO) 2.6 % (0.0-7.0); HEMATOCRIT 41.1 % (42.0-52.0); HEMOGLOBIN 14.3 g/dl (14.0-18.0); IMMATURE GRANULOCYTE % (AUTO) 0.3 % (0.0-5.0); LYMPHOCYTES # (AUTO) 1.9 K/uL (0.60-3.4); LYMPHOCYTES % (AUTO) 29.3 (10.0-50.0); MEAN CORPUSCULAR HEMOGLOBIN 32.9 pg (27.0-31.0); MEAN CORPUSCULAR HGB CONC 34.8 (31.8-35.4); MEAN CORPUSCULAR VOLUME 94.7 fl (80.0-94.0); MONOCYTES # (AUTO) 0.6 K/uL (0.4-2.0); MONOCYTES % (AUTO) 9.6 (0-10); NEUTROPHILS # (AUTO) 3.8 K/ul (2.0-6.9); NEUTROPHILS % (AUTO) 57.7 % (42.2-75.2); PLATELET COUNT 189 10^3/uL (140-440); RDW COEFFICIENT OF VARIATION 13.6 % (11.6-14.8); RED BLOOD COUNT 4.34 10^6/ul (4.70-6.10); WHITE BLOOD COUNT 6.59 K/ul (4.2-10.2)
[2023-01-26 07:22] LABS: BLOOD UREA NITROGEN 17.1 mg/dL (9-20); CALCIUM 8.62 mg/dL (8.4-10.2); CHLORIDE 106.4 mmol/L (98-107); CREATINE KINASE 141.3 U/L (55-170); CREATININE 0.63 mg/dL (0.60-1.10); GLUCOSE 117.4 mg/dL (74-106); POTASSIUM 3.67 mmol/L (3.5-5.1); SODIUM 137.8 mmol/L (134.5-145)
[2023-01-26 07:34] LABS: TROPONIN I 0.15 ng/ml (0.0000-0.120)
[2023-01-26 07:37] LABS: CREATINE KINASE MB 3.67 ng/ml (0.0-2.38)
[2023-01-26] MEDS ORDERED: NEURONTIN PO PRN (07:58)
[2023-01-26] MEDS ORDERED: NITROSTAT SL PRN (07:58)
[2023-01-26] MEDS ORDERED: PREDNISONE PO PRN (07:58)
[2023-01-26] MEDS ORDERED: FLOVENT HFA 110 MCG IH ONE (08:04)
[2023-01-26] MEDS ORDERED: GLUCOPHAGE PO SCH (08:30)
[2023-01-26] MEDS ORDERED: ASPIRIN EC PO SCH (08:30)
[2023-01-26] MEDS ORDERED: BENICAR PO SCH (09:00)
[2023-01-26] MEDS ORDERED: LOVENOX SUBCUT SCH (09:00)
[2023-01-26] MEDS ORDERED: NORVASC PO SCH ×3 (09:00)
[2023-01-26] MEDS ORDERED: LIPITOR PO SCH (09:00)
[2023-01-26] MEDS ORDERED: COZAAR PO SCH (09:00)
[2023-01-26] MEDS ORDERED: VITAMIN D PO SCH (09:00)
[2023-01-26] MEDS ORDERED: CLARITIN PO SCH (09:00)
[2023-01-26] MEDS ORDERED: HYDROCHLOROTHIAZIDE PO SCH (09:00)
[2023-01-26] MEDS ORDERED: AMLODIPINE OLMESARTAN PO SCH (09:00)
[2023-01-26] MEDS ORDERED: CETIRIZINE 10 MG PO SCH (09:00)
[2023-01-26] MEDS ORDERED: ZEBETA PO SCH (09:00)
[2023-01-26] MEDS ORDERED: PLAVIX PO SCH (09:00)
[2023-01-26] MEDS: NITROSTAT SL PRN (09:00)
[2023-01-26] MEDS ORDERED: CATAPRES PO SCH (09:00)
[2023-01-26] MEDS ORDERED: VASOTEC IV IVP STA (09:14)
[2023-01-26] MEDS ORDERED: LOPRESSOR IVP STA (09:14)
[2023-01-26] MEDS ORDERED: GI COCKTAIL PO STA (09:26)
[2023-01-26] MEDS ORDERED: [UNRECOGNIZED DRUG - OTHER] IH SCH (09:45)
[2023-01-26] MEDS ORDERED: FLUTICASONE PROPIONATE IH SCH (09:45)
[2023-01-26] MEDS ORDERED: NON-FORMULARY MEDICATION (Tiotropium-Olodaterol [Stiolto Respimat] 2.5-2.5 mcg/actuation m IH SCH (09:45)
[2023-01-26] MEDS ORDERED: IMDUR PO STA (10:23)
--- NOTE | 2023-01-26 10:34 | PCM.PROG ---
Date Seen by Provider: 01/26/23 Time Seen by Provider: 10:15 Subjective: Patient care discussed with Dr Mitchell and he recommends that patient be transferred to [facility] for further evaluation and care. Objective: Vitals: T=97.8 F, P=81, R=20, BC=497/93, SPO2=95 Alert and in NAD. HEENT: [] Neck: []No JVD Lungs: [] Clear and BS equal. CVS: [] RRR. No peripheral edema. Abdomen: [] Extremities: [] Neurological: []Alert Skin: [] Lab/Tests/Diagnostic Imaging: [] (1) Unstable angina: Status: Acute Code(s): I20.0 - Unstable angina SNOMED Code(s): 0897872 (2) CAD (coronary artery disease): Status: Acute Code(s): I25.10 - Atherosclerotic heart disease of [place] coronary artery without angina pectoris SNOMED Code(s): 44415229 (3) Presence of stent in coronary artery in patient with coronary artery disease: Status: Acute Code(s): I25.10 - Atherosclerotic heart disease of [place] coronary artery without angina pectoris; Z95.5 - Presence of coronary angioplasty implant and graft SNOMED Code(s): 017481943 Plan: Patient to be transferred to [facility] in [place] where his top inventory control executive is located.
--- NOTE | 2023-01-26 12:03 | PCM.DC ---
Final Diagnosis: unstable angina coronary artery disease prior coronary artery stent insertion Physical Exam Appearance: Ill-appearing, No pain distress and Well-nourished Ill-appearing: Mild Pain Distress: None Eyes: Conjunctiva clear ENT: Nose normal and Oropharynx normal Neck: Supple Respiratory: Airway patent, Breath sounds clear and Breath sounds equal Cardiovascular: RRR, No rub and No murmur GI/: Soft, Nontender, No masses and Bowel sounds normal Musculoskeletal: Normal strength Skin: Warm, Dry and Normal color Neurological: Alert and Oriented Psychiatric: Affect appropriate and Mood appropriate (1) Unstable angina: Status: Acute Code(s): I20.0 - Unstable angina SNOMED Code(s): 2757687 (2) CAD (coronary artery disease): Status: Acute Code(s): I25.10 - Atherosclerotic heart disease of [place] coronary artery without angina pectoris SNOMED Code(s): 98588423 (3) Presence of stent in coronary artery in patient with coronary artery disease: Status: Acute Code(s): I25.10 - Atherosclerotic heart disease of [place] coronary artery without angina pectoris; Z95.5 - Presence of coronary angioplasty implant and graft SNOMED Code(s): 007533664 Reason for Hospitalization: patient admitted with chest pain due to unstable angina Prognosis/Condition at Discharge: Condition at transfer is stable. Medications at Discharge: Patient transferred on same medications as at admission. Lab/Diagnostics: troponin 0.150, EKG with subtle changes Education Provided to Patient and Family: coronary artery disease Follow-ups: Follow up with your healthcare advisory services manager and Dr Mitchell as directed. Discharge Disposition: Transfer (Patient to be transferred to [facility] in [place], [place]) Hospital Course: Patient admitted with chest pain. He has a history of CAD and prior coronary artery stent insertion. He underwent echocardiogram and EKG. The EKG had subtle changes and troponin was noted to be elevated. Patient to be transferred to [facility] Plan: Transfer to [facility]
[2023-01-26 14:07] VITALS: BP 122/61; TEMP 97.6
[2023-01-27] MEDS ORDERED: ANORO ELLIPTA 62.5-25 MCG INH IH SCH (09:00)
--- NOTE | 2023-01-29 09:54 | ECHO2D ---
Date of Exam: 01/26/2023 Ordering Physician: DR. SARAH GOMES Room #: 103 Reason for Echo: CHEST PAIN, CAD, STENTS M-Mode Normal Adult Results LV Dimensions Normal Adult Results AoV Opening excursions >1.6 >1.6 LVEDD-base- 3.5-5.8 5.3 Ao root dimensions 2.0-3.7 3.8 LVESD-base- 3.1-4.6 L. Atrium dimensions 1.9-3.8 4.3 Post. Wall thickness 0.8-1.1 1.2 IV septum (thickness) 0.7-1.2 1.3 Post. Wall excursion 0.72-1.3 NORMAL Septal motion NORMAL Systolic motion R. Ventricular cavity 1.5-2.0 4.0 LVEF 60% 50% Paradoxical septal wall motion NORMAL 2-D : 2-D M Mode Echocardiogram was performed using apical four chamber and left parasternal long and short axis views. Mitral, tricuspid and aortic valves appear to be normal. Contractility of the left ventricle seems to be normal, so is the cavity size. ENLARGED RIGHT VENTRICLE AND LEFT ATRIAL CAVITIES. Aortic root appears to be normal. There is no pericardial effusion. There is no thrombus noted in the left ventricle or left atrial cavity. M-MODE: MV: NORMAL AV: NORMAL TV: NORMAL PV: CHAMBER SIZE: NORMAL WALL MOTION: NORMAL PERICARDIUM: NORMAL INTERPRETATION: 1. LEFT VENTRICLE HYPERTROPHY WITH ENLARGED LEFT ATRIAL CAVITY 2. NORMAL LEFT VENTRICLE CONTRACTILITY AND LEFT VENTRICLE SIZE 3. VALVES--NORMAL 4. ENLARGED RIGHT VENTRICLE CAVITY MTDD
--- NOTE | 2023-01-30 07:28 | CONS ---
DATE OF CONSULTATION: 01/26/23 REASON FOR CONSULTATION: Chest pain. HISTORY OF PRESENT ILLNESS: 68-year-old white male hospitalized with chest pain which was fairly typical for unstable angina. The patient had chest pain in the center of the chest going to the neck with sweating and shortness of breath. The patient's symptoms have been present for the past couple of weeks. It started on the morning of hospitalization. The patient was consulted this morning when he was having chest pain again. REVIEW OF SYSTEMS: CONSTITUTIONAL: No night sweats. No fatigue, malaise, lethargy. No fever or chills. HEENT: Eyes: No visual changes. No eye pain. No eye discharge. ENT: No sinus drainage. No epistaxis. No sinus pain. No sore throat. No odynophagia. No ear pain. No congestion. RESPIRATORY: No cough, no congestion. No hemoptysis. No shortness of breath. CARDIOVASCULAR: Chest pain center of the chest along the sternal line going to the neck, jaws and also left arm with shortness of breath and sweating relieved by Nitroglycerin. GASTROINTESTINAL: No abdominal pain. No nausea or vomiting. No diarrhea or constipation. No hematemesis. No hematochezia. GENITOURINARY: No urgency. No frequency. No dysuria. No hematuria. No obstructive symptoms. No discharge. No pain. No significant abnormal bleeding. MUSCULOSKELETAL: No musculoskeletal pain. No joint swelling. NEUROLOGICAL: No headache. No neck pain. No syncope. No seizures. No dizziness. PSYCHIATRIC: Not anxious. No depression. No suicidal thoughts. No homicidal thoughts. SKIN: No rash. No lesions. No wounds. ENDOCRINE: No unexplained weight loss. No weight gain. HEMATOLOGIC/LYMPHATIC: No anemia. No purpura. No petechiae. No prolonged or excessive bleeding. No palpable lymph nodes. MEDICATIONS: Albuterol inhaler Atorvastatin Bisoprolol Clonidine Clopidogrel Loratadine Nitroglycerin p.r.n. Amlodipine ALLERGIES: PENICILLIN (EDEMA) PAST MEDICAL/SURGICAL HISTORY: History of coronary artery disease with stent Chronic lung disease Hypertension Dyslipidemia Generalized osteoarthritis Knee replacement SOCIAL/PERSONAL/FAMILY HISTORY: The patient is , lives with . He smokes more than one pack per day. No alcohol abuse. He does all activity of daily living. Disabled from cardiac and lung problems. PHYSICAL EXAMINATION: GENERAL: The patient is oriented to time, place and person. VITAL SIGNS: Temperature 98.1, pulse 70, respiratory rate 18, blood pressure 160/79, pulse ox 95% on room air. HEENT: Head normocephalic, atraumatic. Eyes: Extraocular muscles are intact. Pupils are equal, round and reactive to light and accommodation. Ears: No lesions. Nose appeared normal. Throat: No exudate or erythema. NECK: Supple. No JVD, no carotid bruit. No lymphadenopathy or thyromegaly. LUNGS: Decreased breath sounds. Good air entry. Clear to auscultation. Percussion note normal. Chest symmetrical. HEART: S1, S2, no S3. No murmurs. No cyanosis or clubbing. No ascites. Pulses: Dorsalis pedis and posterior tibial pulses +1 to +2 bilaterally. ABDOMEN: Soft. Nontender. Bowel sounds active. No CVA tenderness. No mass felt. EXTREMITIES: No pedal edema. Full range of motion of all extremities, equal. NEUROLOGIC: No focal deficit. Cranial nerves II through XII are grossly intact. No headache, no double vision or headache. SKIN: Not dry. Intact. Turgor - normal. LYMPHATIC: No palpable lymph nodes/no lymphedema. MUSCULOSKELETAL: Normal joints with no swelling. Muscle tone is normal. EKG sinus rhythm, no acute changes. All three EKGs noted. There are subtle changes in V2, V3 possibility of anteroseptal wall [place]. Cardiac markers - second one was abnormal. CK-MB negative. ASSESSMENT: 1. Unstable angina, positive troponin. 2. Coronary artery disease with stent. 3. History of smoking. 4. Hypertension. 5. Dyslipidemia. 6. Obesity. RECOMMENDATIONS: 1. Do echo which was done and showed LVH, normal LV contractility, enlarged RV cavity and LA cavity. 2. IV Lopressor given 5 mg because the patient's systolic blood pressure was reported as 160 to 170. 3. IV Vasotec to be given 1.25 mg. 4. Imdur 30 mg p.o. now and twice a day. 5. Continue the rest of the medications with Lovenox, Nitroglycerin p.r.n. as needed. Give GI cocktail. The patient was explained about all these findings and explained to him that it is very likely that he is having a problem with coronary insufficiency and chest pain related. The also was explained about the finding and discussed with hospitalist and the patient is going to be transferred to [facility] under Dr. Oreilly, further evaluation by press brake operator. The patient's condition is stable for now. ADDENDUM: The patient is noncompliant of all aspects of medical care. His prognosis is guarded. TIME SPENT: Level 5. MTDD
== END 2023-01-26 15:02 | disposition short-term general hospital (02) ==
LOC: MEDSURG A 23:20 → ED 23:20 → MEDSURG A 01-26 01:25
PROVIDERS: ADMIT Internal Medicine Geriatric Medicine; ATTEND Surgery
DX: Z68.36 Body mass index [BMI] 36.0-36.9, adult; I20.0 Unstable angina; Z79.82 Long term (current) use of aspirin; Z20.822 Contact with and (suspected) exposure to COVID-19; E78.5 Hyperlipidemia, unspecified; E66.9 Obesity, unspecified; M15.0 Primary generalized (osteo)arthritis; I10 Essential (primary) hypertension; Z79.4 Long term (current) use of insulin; Z51.81 Encounter for therapeutic drug level monitoring; R06.02 Shortness of breath; Z95.5 Presence of coronary angioplasty implant and graft; Z79.899 Other long term (current) drug therapy; Z96.659 Presence of unspecified artificial knee joint; F17.210 Nicotine dependence, cigarettes, uncomplicated